=== PATIENT | male | born 1955 | race Caucasian/White ===

== ENCOUNTER → 2024-08-06 | Day surgery (SDC) | payer OTHER ==
[2024-07-31 10:48] LABS: BASOPHILS # (AUTO) 0.1 (0.0-0.1); BASOPHILS % 0.7 % (0.0-1.0); EOSINOPHILS # (AUTO) 0.3 (0.0-0.4); EOSINOPHILS % 4.9 % (0.0-6.0); HEMATOCRIT 40.3 % (38.2-49.6); HEMOGLOBIN 13.2 g/dL (14.0-18.0); LYMPHOCYTES # (AUTO) 0.9 (1.0-3.2); LYMPHOCYTES % 13.5 % (18.0-39.1); MEAN CORPUSCULAR HEMOGLOBIN 30.6 pg (28-32); MEAN CORPUSCULAR HGB CONC 32.8 g/dL (31-35); MEAN CORPUSCULAR VOLUME 93.3 fL (81-99); MONOCYTES # (AUTO) 0.7 (0.2-0.8); MONOCYTES % 10.2 % (4.4-11.3); NEUTROPHILS # (AUTO) 4.8 (2.1-6.9); NEUTROPHILS % 70.1 % (38.7-80.0); PLATELET COUNT 207 x10e3/uL (140-360); RED BLOOD COUNT 4.32 x10e6/uL (4.3-5.7); RED CELL DISTRIBUTION WIDTH 15.2 % (11.7-14.4); WHITE BLOOD COUNT 6.79 x10e3/uL (4.8-10.8)
[2024-07-31 11:10] LABS: ANION GAP 13.1 mmol/L (8-16); CREATININE, SERUM 1.51 mg/dL (0.72-1.25); POTASSIUM 5.1 mmol/L (3.5-5.1)
[~2024-08-06] MED LIST: ATORVASTATIN CA20 MG PO; BUPROPION HCL150 MG PO; BUSPIRONE HCL5 MG PO; CYCLOBENZAPRINE10 MG PO; EPHEDRINE SULFATE INJ 50 MG/ML VIAL ONE; FENTANYL CITRATE/PF 100MCG/2 ML INJ ONE; GABAPENTIN300 MG PO; GLYCOPYRROLATE INJ 0.2 MG/ML VIAL ONE; JARDIANCE25 MG PO; LIDOCAINE HCL 2% LOCAL INJ 5 ML SDV VIAL INJ ONE; METOPROLOL SUCC25 MG PO; MIDAZOLAM HCL 2 MG/2 ML VIAL ONE; MONTELUKAST SOD10 MG PO; ONDANSETRON HCL INJ 2MG/ML 2ML 2 MG/ML VIAL ONE; PROPOFOL IV EMULSION 50 ML IV ONE; SODIUM CHLORIDE 0.9% 100 ML ONE; SPIRONOLACTONE25 MG PO; STRIVERDI RESPIM4 GM INH; VENLAFAXINE HCL75 MG PO; VENTOLIN HFA18 GM INH; VITAMIN D3 MA125 MCG PO
[2024-08-06] MEDS: CYCLOPENTOLATE HCL 2% OPTH SOLN 2 ML BTL OP ONE (06:17)
[2024-08-06] MEDS: GATIFLOXACIN(OPTH) 5 ML LIQD ONE (06:17)
[2024-08-06] MEDS: LACTATED RINGER'S 1,000 ML ONE (06:18)
[2024-08-06] MEDS: PHENYLEPHRINE HCL 2 ML DROPS ONE (06:18)
[2024-08-06 08:45] VITALS: BP 115/78; PULSE 75; RESP 14; TEMP 97.6; O2SAT 94
== END | disposition home or self-care (01) ==
LOC: OR 05:24
PROVIDERS: ATTEND Ophthalmology
DX: H25.12 Age-related nuclear cataract, left eye (principal); J44.9 Chronic obstructive pulmonary disease, unspecified; I42.9 Cardiomyopathy, unspecified; I11.0 Hypertensive heart disease with heart failure; I50.9 Heart failure, unspecified; E78.5 Hyperlipidemia, unspecified; K21.9 Gastro-esophageal reflux disease without esophagitis; F41.9 Anxiety disorder, unspecified; F32.A Depression, unspecified; F17.200 Nicotine dependence, unspecified, uncomplicated; Z01.810 Encounter for preprocedural cardiovascular examination; Z01.812 Encounter for preprocedural laboratory examination; Z79.84 Long term (current) use of oral hypoglycemic drugs; Z79.899 Other long term (current) drug therapy; Z95.810 Presence of automatic (implantable) cardiac defibrillator; Z98.61 Coronary angioplasty status
CPT/HCPCS: 36415; 66984; 80048; 85025; 93005; J2003; J2250; J2405; J2704; J3010; J7050; J7121; V2632

== ENCOUNTER → 2024-12-10 | Day surgery (SDC) | payer OTHER ==
[2024-12-09 11:39] LABS: BASOPHILS % 0.8 % (0.0-1.0); EOSINOPHILS % 5.1 % (0.0-6.0); LYMPHOCYTES % 14.8 % (18.0-39.1); MONOCYTES % 8.8 % (4.4-11.3); NEUTROPHILS % 70.3 % (38.7-80.0); RED CELL DISTRIBUTION WIDTH 14.4 % (11.7-14.4)
[2024-12-09 12:37] LABS: EST GLOMERULAR FILTRATION RATE 43.0 ML/MIN (>=60)
[~2024-12-10] MED LIST changes: +DEXAMETHASONE SOD PHOS INJ 4 MG/ML SDV ONE; -EPHEDRINE SULFATE INJ 50 MG/ML VIAL ONE; -FENTANYL CITRATE/PF 100MCG/2 ML INJ ONE; -MIDAZOLAM HCL 2 MG/2 ML VIAL ONE; +PROPOFOL IV EMULSION 10 MG/ML 20 ML VIAL ONE; -PROPOFOL IV EMULSION 50 ML IV ONE; -SODIUM CHLORIDE 0.9% 100 ML ONE
[2024-12-10] MEDS: GATIFLOXACIN(OPTH) 5 ML LIQD ONE (09:37)
[2024-12-10] MEDS: LACTATED RINGER'S 1,000 ML ONE (09:37)
[2024-12-10] MEDS: CYCLOPENTOLATE HCL 2% OPTH SOLN 2 ML BTL OP ONE (09:37)
[2024-12-10] MEDS: PHENYLEPHRINE HCL 2 ML DROPS ONE (09:37)
[2024-12-10 10:40] VITALS: BP 58/72; PULSE 63; RESP 16; O2SAT 96
== END | disposition home or self-care (01) ==
LOC: OR 06:32
PROVIDERS: ATTEND Ophthalmology
DX: H25.11 Age-related nuclear cataract, right eye (principal); I25.10 Atherosclerotic heart disease of native coronary artery without angina pectoris; I42.9 Cardiomyopathy, unspecified; I25.2 Old myocardial infarction; I11.0 Hypertensive heart disease with heart failure; I50.9 Heart failure, unspecified; E78.5 Hyperlipidemia, unspecified; J44.9 Chronic obstructive pulmonary disease, unspecified; F41.9 Anxiety disorder, unspecified; F32.A Depression, unspecified; Z01.810 Encounter for preprocedural cardiovascular examination; Z01.812 Encounter for preprocedural laboratory examination; Z79.899 Other long term (current) drug therapy; Z79.84 Long term (current) use of oral hypoglycemic drugs; Z95.0 Presence of cardiac pacemaker; Z87.891 Personal history of nicotine dependence
CPT/HCPCS: 36415; 66984; 80048; 85025; 93005; J1100; J2003; J2405; J2704; J7121; V2632